=== PATIENT | male | born 1995 | race African-American/Black ===

== ENCOUNTER 2021-05-03 11:30 | Outpatient (CLI) | payer OTHER | END 2021-05-03 11:31 | disposition critical access hospital (66) | LOC: EMS 11:30 | DX: Z04.1 Encounter for examination and observation following transport accident (principal); M54.6 Pain in thoracic spine; M54.2 Cervicalgia; M79.632 Pain in left forearm | CPT/HCPCS: A0425; A0429 ==

== ENCOUNTER 2021-05-03 11:47 | Emergency (ER) | payer OTHER ==
[2021-05-03] MEDS ORDERED: IBUPROFEN 800 MG TABLET PO STA (12:35)
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
[2021-05-03] MEDS ORDERED: methocarbamoL 500 MG TABLET PO STA (13:34)
[2021-05-03 14:02] VITALS: BP 128/70
== END 2021-05-03 13:50 | disposition home or self-care (01) ==
LOC: ED 11:47
DX: S16.1XXA Strain of muscle, fascia and tendon at neck level, initial encounter (principal); S50.12XA Contusion of left forearm, initial encounter; V43.52XA Car driver injured in collision with other type car in traffic accident, initial encounter; W22.11XA Striking against or struck by driver side automobile airbag, initial encounter; Y92.410 Unspecified street and highway as the place of occurrence of the external cause
CPT/HCPCS: 72125; 99284; A9270